=== PATIENT | female | born 1995 | race Caucasian/White ===

== ENCOUNTER 2025-01-13 08:13 | Outpatient (CLI) | payer OTHER, SELFPAY ==
--- OUTSIDE RECORDS SUMMARY | 2025-01-13 08:19 | XMS_ITS | Clinical Summary ---
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 Medications PNV #[id number] acid-dha 35 mg iron-5 mg iron-1 mg capsule Take by mouth daily Active ferrous sulfate 325 mg (65 mg of elemental iron) tabletIndicatio ns:Iron Deficiency Anemia Take 1 tablet (325 mg total) by mouth daily with breakfast 90 tablet 3 5 01/06/20 26 Active ondansetron (ZOFRAN) 4 mg tabletIndicatio ns:Nausea and Vomiting Take 1 tablet (4 mg total) by mouth every 6 (six) hours as needed for nausea or vomiting 15 tablet 4 01/06/20 25 Discontinu ed(Patient Reported) multivitamin with minerals tablet Take 1 tablet by mouth daily 01/06/20 25 Discontinu ed(Patient Reported) ferrous sulfate 325 mg (65 mg of elemental iron) tabletIndicatio ns:Iron Deficiency Anemia Take 1 tablet (325 mg total) by mouth daily with breakfast 90 tablet 3 4 01/06/20 25 Discontinu ed(Patient Reported) metoclopramide (REGLAN) 5 mg tablet Take 1 tablet (5 mg total) by mouth daily 5 01/06/20 25 Discontinu ed(Patient Reported) nystatin cream Apply topically 2 (two) times a day 30 g 1 01/06/20 25 Discontinu ed(Patient Reported) amoxicillin (AMOXIL) 500 mg tablet/capsuleI ndications:Stre p pharyngitis Take 1 tablet/capsul e (500 mg total) by mouth 2 (two) times a day for 10 days 20 tablet/capsu le 01/07/20 25 Active Problems Problem Noted Date Diagnosed Date 25 weeks gestation of 01/05/2025 Intertrigo 10/19/2024 Assessment & Plan (10/19/2024 12:53 PM CDT): Iron deficiency anemia 04/15/2024 Tinea versicolor 04/15/2024 Irritable bowel syndrome with constipation 04/15 Estimated Date of Delivery Comme nts Yes 04/14/2025 Resolved Problems Problem Noted Date Diagnosed Date Resolved Date Annual physical exam 10/19/2024 025 Assessment & Plan (10/19/2024 12:53 PM CDT): Screening for diabetes mellitus 04/15/2024 01/05/2025 Screening, anemia, deficiency, iron 04/15/2024 10/18/2024 Screening for lipid disorders 04/15/2024 01/05/2025 Screening for thyroid disorder 04/15/2024 01/05/2025 Immunization due 04/15/2024 01/05/2025 Encounter for medical examin ation to establish care 03/03/2024 10/18/2024 Encounters Date Type Department Care Team Description 01/05/2025 9:00 AM CDT Office Visit [facility] Primary Care at [address] [address] Aliyah Dee NP Acute upper respiratory infection (Primary Dx); Acute cough; Sore throat; Iron deficiency anemia, unspecified iron deficiency anemia type; Diarrhea of infectious origin; 25 weeks gestation of 01/04/2025 Nurse Triage [facility] at [address] [place] [address] Casandra Blevins NP 12/27/2024 10:00 AM CDT Office Visit [facility] [place] [phone] Celia Shane NP Sore throat (Primary Dx); Strep pharyngitis 12/12/2024 Telephone [facility] Care at [place] [phone] Casandra Blevins NP Forms Request 10/19/2024 9:30 AM CDT Office Visit [facility] Care at [address] [address] Casandra Blevins, SHANAE Annual physical exam (Primary Dx); Intertrigo from Last 3 Months Immunizations Immunization Administration Dates Next Due DTaP 06/10/2016 DTaP, Unspecified 02/23/2001, 8,06/06/1997,03/30,02/03/1997 HPV, Quadrivalent 01/08/2015 Hep A, Unspecified 01/03/2003 Hep B, Unspecified 12/13/1997,03/30/1997, 997 HiB 12/13/1997, 8,03/30/1997,02/03 Influenza, Quadrivalent, Spl it, Preservative Free, Intramuscular 03/30/2023 Influenza, Trivalent, Preser vative Free, Intramuscular 04/15/2024 Influenza, Unspecified 04/12/2024(Deferr ed: Patient Refused),03/02/2024(Deferred: Patient Refused),03/09/2023(Deferred: Patient Refused),03/09/2023(Deferred: Patient Refused) MMR 02/23/2001,12/13/1997 Meningococcal Conjugate (Menveo) 01/08/2015 Pfizer Sars-Cov-2 Bivalent V accination (12+ YRS) 04/21/2022,03/31/2022 Polio, Unspecified 02/23/2001, 8,03/30/1997,02/03 Td, adsorbed 03/17/2011 Tdap 06/10/2016,03/17/2011 Varicella 02/23/2001 Social History Tobacco Use Types Packs/Day Years Used Date Smoking Tobacco: Never Smokeless Tobacco: Never Tobacco Cessation:Counseling Given: Not Answered PHQ-2 Answer Date Recorded PHQ-2 Total Score (If total score is 3 or more points, staff should administer the PHQ-9) 0 04/15/2024 Personal Safety Answer Date Recorded Have you ever been in or are you currently in a harmful physical or emotional relationship or is someone making you feel afraid or unsafe? Denies 11/02/2022 Estimated Date of Delivery Comme nts Yes 04/14/2025 Sex and Gender Information Value Date Recorded Sex Assigned at Not on file Legal Sex Female 3:34 PM PIPE BENDER Gender Identity Female 04/17/2024 4:26 PM PIPE BENDER Sexual Orientation Not on file Obstetrics History Para Term AB IAB SAB Ectopic Multiple Livin g Live Births 1 Date Outcome GA Total Labor Labor/2nd/3rd Weight Sex Type Anes PTL Elizabeth A1 A5 Name Clin Current Last Filed Vital Signs Vital Sign Reading Time Taken Comments Blood Pressure 112/68 01/05/2025 8:36 AM CDT Pulse 121 01/05/2025 8:36 AM CDT Temperature 36.8 C (98.2 F) 01/05/2025 8:36 AM CDT Respiratory Rate 18 01/05/2025 8:36 AM CDT Oxygen Saturation 97% 01/05/2025 8:36 AM CDT Inhaled Oxygen Concentration - - Weight 101.6 kg (224 lb) 01/05/2025 8:36 AM CDT Height 170.2 cm (5' 7) 01/05/2025 8:36 AM CDT Body Mass Index 35.08 01/05/2025 8:36 AM CDT Plan of Treatment Health Maintenance Due Date Last Done Comments Cervical Cancer Screening 1996 HPV Vaccines (2 - 3-dose series) 02/05/2015 01/08/2015 Covid-19 Vaccine ( season) 2024 04/21/2022, 03/31/2022 Influenza Vaccine (#1) 2025 04/15/2024, 2022 Hepatitis C Screening 03/02/2025 Postpo supriya from 1996 (Patient declined, but will receive in the future) Depression Screening 04/15/2025 04/15/2024 Varicella Vaccines (2 of 2 - 2-dose childhood series) 10/18/2025 02/23/2001 Postponed fro m 05/18/2001 (Patient declined, but will receive in the future) Regular Well Visit/Exam 18-64 10/19/2025 10/19/2024 DTaP/Tdap/Td Vaccine (10 - Td or Tdap) 06/10/2026 06/10/2016, 06/10/2016, 03/17/2011, Additional history exists Hepatitis B Screening Completed 12/13/1997 , 03/30/1997, 02/03/1997 Pneumococcal vaccine <65 Aged Out No longer eligible based on patient's age to complete this topic Procedures Procedure Name Priority Date/Time Associated Diagnosis Comments POC INFLUENZA A/B, COVID-19 ANTIGEN Routine 01/05/2025 9:52 AM CDT Acute cough POCT RAPID STREP Routine 01/05/2025 9:02 AM CDT Acute cough Sore throat POC INFLUENZA A/B, COVID-19 ANTIGEN Routine 12/27/2024 10:15 AM CDT Sore throat POCT RAPID STREP Routine 12/27/2024 10:0 5 AM CDT Sore throat from Last 3 Months Results * POC Influenza A/B, COVID-19 antigen (01/05/2025 9:52 AM CDT) Influenza A Ag, POC Negative Negative PCP [facility] Influenza B Ag, POC Negative Negative PCP [facility] COVID-19 Ag POC Presumptive Negative Presumptive Negative, Invalid PCP FM CM Nasal 01/05/2025 9:52 AM CDT Aliyah Dee LITHODUPLICATOR OPERATOR POINT OF CARE TEST ORDE RABLES Final Result Performing Organization Address City/[facility]/ZIP Co de Phone Number PCP [address] [place] [address] * POCT rapid strep A (01/05/2025 9:02 AM CDT) Rapid Strep A, POC Negative Negative Swab 01/05/2025 9:02 AM CDT Aliyah Dee LITHODUPLICATOR OPERATOR POINT OF CARE TEST ORDE RABMIN Final Result * POC Influenza A/B, COVID-19 antigen (12/27/2024 10:15 AM CDT) [facility] Influenza A Ag, POC Negative Negative [facility] Influenza B Ag, POC Negative Negative [facility] COVID-19 Ag POC Presumptive Negative Presumptive Negative, Invalid [facility] Nasal 12/27/2024 10:1 5 AM CDT Celia Shane LITHODUPLICATOR OPERATOR POINT OF CARE TEST ORDERAB LES Final Result Performing Organization Address [facility] de Phone Number [facility] [address] [place] [address] * (ABNORMAL) POCT rapid strep A (12/27/2024 10:05 AM CDT) Rapid Strep A, POC Positive(A ) Negative Swab 12/27/2024 10:0 5 AM CDT Celia Shane LITHODUPLICATOR OPERATOR POINT OF CARE TEST ORDERAB LES Final Result from Last 3 Months Insurance [facility] [facility] [place] Care Teams Early Childhood Teacher Assistant Relationship Specialty Start Date End Date Casandra Blevins NP [id number] [facility] [address] [place] [address] PCP - General Family Medicine 04/15/24
--- OUTSIDE RECORDS SUMMARY | 2025-01-13 08:19 | XMS_ITS | Patient Health Record ---
Author Organization [facility] Address [address] [place] [address] Care Team Providers Care Messaging Architect Name Role Phone Toyin Avelar Unavailable [phone] Allergies No Known Allergies Reason For Referral Reason [place] - Ultrasound - TB D Please locate provider Diagnosis 1 (Z3A.37) Referred Provider Specialty Radiology General Notes Jasmine Monroy 06/2024 12:24:46 PM >1) Do you already have an appointment scheduled TBD, 2) If not scheduled what is your availability? , 3) What is the reason for visit? , 4) Do you have a preferred provider? , 5) What type of provider is this? Derm , 6) Do you already have a referral or order for this? ( If yes please obtain order or ordering provider's information ) , 7) Notes: Mbr sent in SCB, Sending for coordination, Please locate provider , * Facility/provider name:, * Provider Address: , Phone: , Fax: , * Is the member in [facility] (Y/N): If Y was AHC offered? , NPI Number:, Jasmine Monroy 09/02/2024 08:00:33 AM >Correction * *, Do you already have an appointment scheduled TBD, 2) If not scheduled what is your availability? , 3) What is the reason for visit? - US, 4) Do you have a preferred provider? , 5) What type of provider is this? Radiology , 6) Do you already have a referral or order for this? ( If yes please obtain order or ordering provider's information ) , 7) Notes: Mbr sent in SCB, Sending for coordination, Please locate provider , * Facility/provider name:, * Provider Address: , Phone: , Fax: , * Is the member in [facility] (Y/N): If Y was AHC offered? , NPI Number:;Assign To :DOMO Tapia; Clinical Notes Vj Cardona 12:31:53 PM >mm called in to inform she needs an ultrasound, Jasmine Monroy 09/02/2024 08:01:39 AM >Mbr called to check status. Advised still in process. Can take 24-72 business hours. Coordination will be calling soon for an update. Also corrected my notes above., Regina Platt 09/02/2024 08:39:14 AM >closing this portion out as spoke to MM she stated needing US due to , confirmed this would be her first one I advised she would first have her consult with OB than they will recommend US OB scan. open referral already for her OB. Referral Priority Routine Reason OS [place] - [place]BG[place] - TBD [facility] Diagnosis 1 (Z34.90) Referred Provider Specialty OB - Gynecol ogy General Notes Jasmine Monroy 08/2024 08:07:08 AM >1) Do you already have an appointment scheduled: TBD, 2) If not scheduled what is your availability? , 3) What is the reason for visit: , 4) Do you have a preferred provider? , 5) What type of provider is this? OBGYN , 6) Do you already have a referral or order for this? ( If yes please obtain order or ordering provider's information ) , 7) Notes: Mbr called would like to be seen at this office. Sending for coordination. , * Facility/provider name: [facility], * Provider Address: [address] [place] [address] [facility], [place] [address], , Fax: , * Is the member in [facility] (Y/N): If Y was AHC offered? , NPI Number: Unable to locate;Assign To :DOMO Cain Hawley; Clinical Notes Regina Platt 09/02/2024 08:40:24 AM >MM was scheuled for her first OB/ US visit but stated they cancelled due to not have any insurance information. I advised coordination team would follow up as MM needs R/S., DOMO Barlow Marleen 09/07/2024 02:22:28 PM >left vm working on referral, DOMO Barlow Marleen 09/07/2024 02:23:55 PM >[facility], Provider Address: [address] [place] [address] [address], [place] [address], , Office is closed, DOMO Barlow Marleen 09/08/2024 10:05:56 AM >spk to mm she stated she has found another ob and will not be going to [facility]- mm didnt have provider info she stated she will call back with info. Referral Priority Routine Referral Appointment Date 09/02/2024 Reason [place]- OBGYn Appt 2024 Diagnosis 1 (Z34.90) Referred Provider Specialty OB - Gynecol ogy General Notes DOMO Barlow Marleen 09/08 10:32:17 AM >1.Type of service:obgyn , 2.Ordering doctor, 3. Preferred Provider (Y/N): Dr Massey, 4. Facility/Provider Name: [facility] [place]-LICENSED CERTIFIED ORTHOTIST, Address: [address] [place] [address] [address], [place] [address], , 5. NPI Number: , 6. Provider Address/Phone/Fax, 7. Appointment Date/Time: 09/16/2024, 8. If preferred provider charges over the usual rates, member is willing to pay the amount over fair rate: (Y/N), If N, member is willing to go elsewhere., 9.Notes:;Assign To :DOMO Fried; Clinical Notes Fariha Ewing 06:21:01 AM >Office Name: [facility] - OB-LICENSED CERTIFIED ORTHOTIST, Provider:, Address: [address] [place] [address] [address], [place] [address] , , , NPI:, Spoke with: Maribell , PHCS: Y, Appointment Date/Time: 09/16/2024, Appointment Type: Office visit , Member Responsibility: $0 copay , Notes: Spoke to Maribell appointment was coordinated, referral reference form fax to office., Fariha Ewing 09/12/2024 06:21:28 AM >Left detail message for patient with appointment coordination and send email. Referral Priority Routine Social History Social History Additional Details Category Social Info Options Details Migrated Social History Drugs/Alcohol: (Do you drink alcohol?): No (Do you smoke marijuana?): Denies Section Notes: Quit vaping 2 years ago. Encounters Encounter Location Date Provider Diagnosis [facility] [address] [place] [address] 08/30/2024 [facility] [address] [place] [address] 08/30/2024 [facility] [address] [place] [address] 08/30/2024 [facility] [address] [place] [address] 08/30/2024 [facility] [address] [place] [address] 08/30/2024 [facility] [address] [place] [address] 08/31/2024 [facility] [address] [place] [address] 09/02/2024 [facility] [address] [place] [address] 09/16/2024 [facility] [address] [place] [address] 09/16/2024 [facility] [address] [place] [address] 10/12/2024 [facility] Plan Of Treatment No Information Insurance Providers Payer Name Payer Address Payer Phone Subscriber Number Group Number Insured Name Patient Relationship to Insured Coverage Start Date Coverage End Date [facility] [address] [place] [id number] Katelyn Loaiza Self - patient is the insured 5 6 Medical (General) History Medical History History ICD Code - will be 8 weeks on 09/01/24 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
--- OUTSIDE RECORDS SUMMARY | 2025-01-13 08:19 | XMS_ITS | Patient Health Record ---
Author Organization [facility] Address [address] [place] [address] Care Team Providers Care Ironing Machine Operator Name Role Phone SIS SEYMOUR Unavailable [phone] Allergies No Known Allergies Reason For Referral [...] Fax: , * Is the member in [facility] (Y/N): If Y was AHC offered? , [...] Fax: , * Is the member in [facility] (Y/N): If Y was AHC offered? , NPI Number: Clinical Notes Vj Cardona 12:31:53 PM >mm [...] OS [place] - [place] - TBD [facility] Diagnosis 1 (Z34.90) Referred Provider Specialty [...] for coordination. , * Facility/provider name: [facility], * Provider Address: [address] [place] [address] [address], [place] [address], , Fax: , * Is the member in [facility] (Y/N): If Y was AHC offered? , NPI Number: Unable to locate Clinical Notes Regina Platt 09/02/2024 08:40:24 AM >[facility] was scheuled for her first OB/ US visit but stated they cancelled due to not have any insurance information. I advised coordination team would follow up as MM needs R/S., Marleen Olsen 09/07/2024 02:22:28 PM >left vm working on referral, DOMO Barlow Edna 09/07/2024 02:23:55 PM >[facility], Provider Address: [address] [place] [address] [address], [place] [address], , Office is closed, DOMO Barlow Edna 09/08/2024 10:05:56 AM >spk to mm she stated she has found another ob and will not be going to [facility]- mm didnt have provider info she stated she will call back with info. Referral Priority Routine Referral Appointment Date 09/02/2024 Reason [place]- OBGYn Appt 2024 Diagnosis 1 (Z34.90) Referred Provider Specialty OB - Gynecol ogy General Notes DOMO Barlow Edna 09/08 10:32:17 AM >1.Type of service:obgyn , 2.Ordering doctor, 3. Preferred Provider (Y/N): Dr Massey, 4. Facility/Provider Name: [facility] OB-FELT STRIP FINISHER, Address: [address] [place] [address] [address], [place] [address], , 5. NPI Number: , 6. Provider Address/Phone/Fax, 7. Appointment Date/Time: 09/16/2024, 8. If preferred provider charges over the usual rates, member is willing to pay the amount over fair rate: (Y/N), If N, member is willing to go elsewhere., 9.Notes: Clinical Notes Fariha Ewing 06:21:01 AM >Office Name: [facility], Provider:, Address: [address] [place] [address] [address], [place] [address] , , , NPI:, Spoke with: Maribell PHCS: Y, Appointment Date/Time: 09/16/2024, Appointment Type: Office visit , Member Responsibility: $0 copay , Notes: Spoke to Maribell appointment was coordinated, referral reference form fax to office., Fariha Ewing 09/12/2024 06:21:28 AM >Left detail message for patient with appointment coordination and send email. Referral Priority Routine Social History Social History Additional Details Category Social Info Options Details Drugs/Alcohol: Do you smoke marijuana? De nies Do you drink alcohol? No Section Notes: Quit vaping 2 years ago. Encounters Encounter Location Date Provider Diagnosis [facility] [address]) [place] [address] 08/30/2024 [facility] [address] [place] [address] 08/30/2024 [facility] [address] [place] [address] 08/30/2024 [facility] [address] [place] [address] 08/30/2024 [facility] [address] [place] [address] 08/30/2024 [facility] [address] [place] [address] 08/31/2024 [facility] [address] [place] [address] 09/02/2024 [facility] [address] [place] [address] 09/16/2024 [facility] [address] [place] [address] 09/16/2024 [facility] [address] [place] [address] 10/12/2024 [facility] Plan Of Treatment No Information Insurance Providers Payer Name Payer Address Payer Phone Subscriber Number Group Number Insured Name Patient Relationship to Insured Coverage Start Date Coverage End Date 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
[2025-01-13 09:35] LABS: Hematocrit 36.3 % (37.0-47.0); Hemoglobin 12.1 g/dL (12.0-15.0); Mean Corpuscular HGB Conc 33.3 g/dl (32-36); Mean Corpuscular Hemoglobin 31.2 pg (26-34); Mean Corpuscular Volume 93.6 fl (80-100); Platelet Count Result 230 k/mm3 (150-375); Red Blood Count 3.88 M/mm3 (4.2-5.4); White Blood Count 12.2 K/mm3 (4.5-10.0)
[2025-01-13 09:58] LABS: Glucose 1 Hour PP 50gm Dose 152 mg/dL
[2025-01-13 10:40] LABS: HIV 1/2 Ab P24 Ag Result Negative (Negative)
[2025-01-13 10:56] LABS: Syphilis IgG/IgM Antibody Non-Reactive (Nonreactive)
== END 2025-01-13 08:14 | disposition home or self-care (01) ==
PROVIDERS: PCP Nurse Practitioner; Visit Provider Student in an Organized Health Care Education/Training Program
DX: Z34.90 Encounter for supervision of normal pregnancy, unspecified, unspecified trimester (principal); Z3A.00 Weeks of gestation of pregnancy not specified
CPT/HCPCS: 36415; 82947; 85027; 86593; 86703; G0432

== ENCOUNTER 2025-01-17 06:47 | Outpatient (CLI) | payer OTHER, SELFPAY ==
--- OUTSIDE RECORDS SUMMARY | 2025-01-17 06:50 | XMS_ITS | Patient Health Record ---
Author Organization [facility] Address [address] [place] [address] Care Team Providers Care Onion Topper Name Role Phone SIS SEYMOUR Unavailable [phone] Allergies No Known Allergies Reason For Referral [...] Fax: , * Is the member in [facility] (Y/N): If Y was AHC [...] Fax: , * Is the member in [facility] (Y/N): If Y was AHC [...] [place] - [place] - TBD [facility] Diagnosis 1 (Z34.90) Referred Provider [...] for coordination. , * Facility/provider name: [facility], * Provider Address: [address] [place] [address] [address], [place] [address], , Fax: , * Is the member in [facility] (Y/N): If Y was AHC [...] DOMO Barlow Edna 09/07/2024 02:23:55 PM >[facility], Provider Address: [address] [place] [address] Dr Jack TaylorB, [place] [address], , Office is closed, DOMO Balrow Edna 09/08/2024 10:05:56 AM >spk to mm she stated she has found another ob and will not be going to [place] [facility]- mm didnt have provider info she stated she will call back with info. Referral Priority Routine Referral Appointment Date 09/02/2024 Reason [place]- OBGYn Appt 2024 Diagnosis 1 (Z34.90) Referred Provider Specialty OB - Gynecol ogy General Notes DOMO Barlow Edna 09/08 10:32:17 AM >1.Type of service:obgyn , 2.Ordering doctor, 3. Preferred Provider (Y/N): Dr Massey, 4. Facility/Provider Name: [facility] OB-WAD COMPRESSOR OPERATOR ADJUSTER, Address: [address] [place] [address] [address], [place] [address], , 5. NPI Number: , 6. Provider Address/Phone/Fax, 7. Appointment Date/Time: 09/16/2024, 8. If preferred provider charges over the usual rates, member is willing to pay the amount over fair rate: (Y/N), If N, member is willing to go elsewhere., 9.Notes: Clinical Notes Fariha Ewing 06:21:01 AM >Office Name: [facility]-WAD COMPRESSOR OPERATOR ADJUSTER, Provider:, Address: [address] [place] [address] [address], [place] [address] , , , NPI:, Spoke with: Maribell [...] ago. Encounters Encounter Location Date Provider Diagnosis [facility] Yovanny [address] ([address]) [facility] [place] [address] [facility] [address] [place] [address] 08/30/2024 [facility] [address] [place] [address] 08/30/2024 [facility] [address] [place] [address] 08/30/2024 [facility] [address] [place] [address] 08/30/2024 [facility] [address] [place] [address] 08/31/2024 [facility] [address] [place] [address] 09/02/2024 [facility] [address] [place] [address] 09/16/2024 [facility] [address] [place] [address] 09/16/2024 [facility] [address] [place] [address] 10/12/2024 [facility] Plan Of Treatment No Information Insurance Providers Payer Name Payer Address Payer Phone Subscriber Number Group Number Insured Name Patient Relationship to Insured Coverage Start Date Coverage End Date [facility] [address] MINNIE Farias [id number] Katelyn Loaiza Self - patient is the insured 5 6 Medical (General) History Medical History History ICD Code - will be 8 weeks on 09/01/24 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
--- OUTSIDE RECORDS SUMMARY | 2025-01-17 06:50 | XMS_ITS | Patient Health Record ---
Author Organization [facility] Address [address] [place] [address] Care Team Providers Care Poll Clerk Name Role Phone Toyin Avelar Unavailable [phone] Allergies No Known Allergies Reason For Referral [...] Fax: , * Is the member in [facility] (Y/N): If Y was AHC offered? [...] Fax: , * Is the member in [facility] (Y/N): If Y was AHC offered? [...] [place] - [place] - [place] [facility] Diagnosis 1 (Z34.90) Referred Provider Specialty [...] for coordination. , * Facility/provider name: [facility], * Provider Address: [address] [place] [address] [facility], [place] [address], , Fax: , * Is the member in [facility] (Y/N): If Y was AHC offered? [...] referral, DOMO Barlow Marleen 09/07/2024 02:23:55 PM >[facility], Provider Address: [address] [place] [address] [address], [place] [address], , Office is closed, DOMO Barlow Marleen 09/08/2024 10:05:56 AM >spk to mm she stated she has found another ob and will not be going to [place] [facility]- mm didnt have provider info she stated she will call back with info. Referral Priority Routine Referral Appointment Date 09/02/2024 Reason [place]- OBGY[place] Appt 2024 Diagnosis 1 (Z34.90) Referred Provider Specialty OB - Gynecol ogy General Notes DOMO Barlow Marleen 09/08 10:32:17 AM >1.Type of service:obgyn , 2.Ordering doctor, 3. Preferred Provider (Y/N): Dr Massey, 4. Facility/Provider Name: [facility] OB-BODY BUILDER APPRENTICE, Address: [address] [place] [address] [address], [place] [address], , 5. NPI Number: , 6. Provider Address/Phone/Fax, 7. Appointment Date/Time: 09/16/2024, 8. If preferred provider charges over the usual rates, member is willing to pay the amount over fair rate: (Y/N), If N, member is willing to go elsewhere., 9.Notes:;Assign To :DOMO Fried; Clinical Notes Fariha Ewing 06:21:01 AM >Office Name: [facility] - OB-BODY BUILDER APPRENTICE, Provider:, Address: [address] [place] [address] [address], [place] [address] , , , NPI:, Spoke with: Maribell [...] ago. Encounters Encounter Location Date Provider Diagnosis [facility] [address] [place] [address] 08/30/2024 [facility] [address] [place] [address] 08/30/2024 [facility] [address] [place] [address] 08/30/2024 [facility] [address] [place] [address] 08/30/2024 [facility] [address] [place] [address] 08/30/2024 [facility] [address] [place] [address] 08/31/2024 [facility] [address] [place] [address] 09/02/2024 [facility] [address] [place] [address] 09/16/2024 [facility] [address] [place] [address] 09/16/2024 [facility] [address] [place] [address] 10/12/2024 [facility] Plan Of Treatment No Information Insurance Providers Payer Name Payer Address Payer Phone Subscriber Number Group Number Insured Name Patient Relationship to Insured Coverage Start Date Coverage End Date [facility] [address] MINNIE Farias [id number] Katelyn Loaiza Self - patient is the insured 5 6 Medical (General) History Medical History History ICD Code - will be 8 weeks on 09/01/24 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
[2025-01-17 07:45] LABS: Glucose Fasting Gestational 84 mg/dL (>/=95)
[2025-01-17 10:33] LABS: Glucose 1 Hour Gest 193 mg/dL (>/=180)
[2025-01-17 10:37] LABS: Glucose 2 Hour Gest 137 mg/dL (>/= 155)
[2025-01-17 12:14] LABS: Glucose 3 Hour Gest 71 mg/dL (>/=140)
== END 2025-01-17 06:48 | disposition home or self-care (01) ==
LOC: ANHLAB 06:48
PROVIDERS: PCP Nurse Practitioner; Visit Provider Student in an Organized Health Care Education/Training Program
DX: R73.09 Other abnormal glucose (principal)
CPT/HCPCS: 36415; 82951; 82952

== ENCOUNTER 2025-01-22 13:13 | Outpatient (CLI) | payer OTHER, SELFPAY ==
[2025-01-22] VITALS (11 sets, daily range): BP systolic 129–135; BP diastolic 72–78; PULSE 67–80; TEMP 37.4; O2SAT 98–100
[2025-01-22 13:57] LABS: Add Urine Microscopic? NO; Appearance Urine Clear (Clear); Glucose Urine UA Negative (Negative); Hematocrit 33.7 % (37.0-47.0); Hemoglobin 11.2 g/dL (12.0-15.0); Immature Granulocyte Percent A 0.7 % (0-0.5); Leukocyte Esterase Ur Negative LEU/UL (Negative); Lymphocytes Absolute Auto 1.65 K/mm3 (0.9-3.2); Mean Corpuscular HGB Conc 33.2 g/dl (32-36); Mean Corpuscular Hemoglobin 31.2 pg (26-34); Mean Corpuscular Volume 93.9 fl (80-100); Nitrate Urine Negative (Negative); Nucleated Red Blood Cells Absolute Auto 0.000 K/mm3 (0.0-0.012); Nucleated Red Blood Cells Perc 0.0 % (0.0-0.2); Platelet Count Result 202 k/mm3 (150-375); Red Blood Count 3.59 M/mm3 (4.2-5.4); Specific Grav Ur 1.005 (1.001-1.035); White Blood Count 10.9 K/mm3 (4.5-10.0)
[2025-01-22 14:06] LABS: Total Protein Urine Random 10 mg/dL; Ur Ttl Prot Creatinine Ratio 0.43 mg/mg (0-0.20)
[2025-01-22 14:18] LABS: Alanine Aminotransferase 20 U/L (6-35); Albumin Level 3.1 g/dL (3.5-5.1); Alkaline Phosphatase 69 U/L (38-126); Anion Gap 4 mmol/L (4-12); Aspartate Amino Transferase 25 U/L (14-36); Bilirubin,Total < 0.1 mg/dL (0.2-1.3); Blood Urea Nitrogen 10 mg/dL (7-17); Calcium 9.0 mg/dL (8.4-10.2); Carbon Dioxide 21 mmol/L (22-30); Chloride 109 mmol/L (98-107); Estimated Glomerular Filt Rate > 60; Glucose 76 mg/dL (65-110); Potassium 4.1 mmol/L (3.4-5.0); Sodium 134 mmol/L (137-145); Total Protein 6.0 g/dL (6.3-8.2); Uric Acid 5.4 mg/dL (2.5-7.5)
== END 2025-01-22 14:45 | disposition home or self-care (01) ==
LOC: ANHOBOP 13:23 → ANHLDR 13:31
PROVIDERS: PCP Nurse Practitioner; Visit Provider Obstetrics & Gynecology
DX: O26.899 Other specified pregnancy related conditions, unspecified trimester (principal); R51.9 Headache, unspecified; H53.8 Other visual disturbances; Z3A.00 Weeks of gestation of pregnancy not specified
CPT/HCPCS: 36415; 59025; 80053; 81003; 82570; 84156; 84550; 85025; 99199

== ENCOUNTER 2025-01-25 09:30 | Outpatient (NON) | payer OTHER, SELFPAY ==
--- OUTSIDE RECORDS SUMMARY | 2025-01-25 09:43 | XMS_ITS | Patient Health Record ---
Author Organization [facility] Address [address] [place] [address] Care Team Providers Care Cotton Presser Name Role Phone Toyin Avelar Unavailable [phone] Allergies No Known Allergies Reason For Referral [...] Fax: , * Is the member in [facility] (Y/N): If Y was AHC [...] Fax: , * Is the member in [facility] (Y/N): If Y was AHC [...] [place] - [place] - [place] [facility] Diagnosis 1 (Z34.90) Referred Provider Specialty [...] for coordination. , * Facility/provider name: [facility], * Provider Address: [address] [place] [address] [facility], [place] [address], , Fax: , * Is the member in [facility] (Y/N): If Y was AHC offered? , NPI Number: Unable to locate;Assign To :DOMO Hawley; Clinical Notes Regina Platt 09/02/2024 08:40:24 AM >MM was scheuled for her first OB/ US visit but stated they cancelled due to not have any insurance information. I advised coordination team would follow up as MM needs R/S., Marleen Olsen 09/07/2024 02:22:28 PM >left vm working on referral, Marleen Olsen 09/07/2024 02:23:55 PM >[facility], Provider Address: [address] [place] [address] [address], [place] [address], , Office is closed, Marleen Olsen 09/08/2024 10:05:56 AM >spk to mm she stated she has found another ob and will not be going to [facility]- mm didnt have provider info she stated she will call back with info. Referral Priority Routine Referral Appointment Date 09/02/2024 Reason [place]- OBGYn Appt 2024 Diagnosis 1 (Z34.90) Referred Provider Specialty OB - Gynecol ogy General Notes DOMO Barlow Marleen 09/08 10:32:17 AM >1.Type of service:obgyn , 2.Ordering doctor, 3. Preferred Provider (Y/N): Dr Massey, 4. Facility/Provider Name: [facility] OB-UTILITY TECH, Address: [address] [place] [address] [address], [place] [address], , 5. NPI Number: , 6. Provider Address/Phone/Fax, 7. Appointment Date/Time: 09/16/2024, 8. If preferred provider charges over the usual rates, member is willing to pay the amount over fair rate: (Y/N), If N, member is willing to go elsewhere., 9.Notes:;Assign To :DOMO Fried; Clinical Notes Fariha Ewing 06:21:01 AM >Office Name: [facility] - OB-UTILITY TECH, Provider:, Address: [address] [place] [address] [address], [place] [address] , , , NPI:, Spoke with: Maribell [...] ago. Encounters Encounter Location Date Provider Diagnosis [facility] [address] [place] [address] 08/30/2024 [facility] [address] [place] [address] 08/30/2024 [facility] [address] [place] [address] 08/30/2024 [facility] [address] [place] [address] 08/30/2024 [facility] [address] [place] [address] 08/30/2024 [facility] [address] [place] [address] 08/31/2024 [facility] [address] [place] [address] 09/02/2024 [facility] [address] [place] [address] 09/16/2024 [facility] [address] [place] [address] 09/16/2024 [facility] [address] [place] [address] 10/12/2024 [facility] Plan Of Treatment No Information Insurance Providers Payer Name Payer Address Payer Phone Subscriber Number Group Number Insured Name Patient Relationship to Insured Coverage Start Date Coverage End Date 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
--- OUTSIDE RECORDS SUMMARY | 2025-01-25 09:43 | XMS_ITS | Clinical Summary ---
Author Organization [facility] Address [address] [place] [address] Care Team Providers Care Dianetic Counselor Name Role Phone Casandra Blevins NP Primary Care Provider [phone] Allergies Active Allergy Reactions Criticality Noted Date Comments Coconut Anaphylaxis High 01/11/2022 Medications PNV #[id number] acid-dha 35 mg iron-5 mg iron-1 mg [...] Description 01/05/2025 9:00 AM CDT Office Visit [facility] Primary Care at [address] [address] Aliyah Dee NP Acute upper respiratory infection (Primary Dx); Acute cough; Sore throat; Iron deficiency anemia, unspecified iron deficiency anemia type; Diarrhea of infectious origin; 25 weeks gestation of 01/04/2025 Nurse Triage [facility] Primary Care at [address] [place] [address] Casandra Blevins NP 12/27/2024 10:00 AM CDT Office Visit [facility] [place] [phone] Celia Shane NP Sore throat (Primary Dx); Strep pharyngitis 12/12/2024 Telephone [facility] Primary Care at [address] [phone] Casandra Blevins NP Forms Request from Last 3 Months Immunizations Immunization Administration [...] on file Legal Sex Female 3:34 PM STAFF DEVELOPMENT MANAGER Gender Identity Female 04/17/2024 4:26 PM STAFF DEVELOPMENT MANAGER Sexual Orientation Not on file Obstetrics History [...] Influenza A Ag, POC Negative Negative PCP CM Influenza B Ag, POC Negative Negative PCP CM COVID-19 Ag POC Presumptive Negative Presumptive Negative, Invalid PCP CM Nasal 01/05/2025 9:52 AM CDT Aliyah Dee FINANCIAL ADMINISTRATION OFFICER POINT OF CARE TEST HEATHER FIERRO Final Result PCP CM [address] [place] [address], [facility] * POCT rapid strep A (01/05/2025 9:02 AM CDT) Rapid Strep A, POC Negative Negative Swab 01/05/2025 9:02 AM CDT Aliyah Dee FINANCIAL ADMINISTRATION OFFICER POINT OF CARE TEST HEATHER FIERRO Final Result * POC Influenza A/B, COVID-19 antigen (12/27/2024 10:15 AM CDT) Pathologist [facility] Influenza A Ag, POC Negative Negative [facility] Influenza B Ag, POC Negative Negative [facility] COVID-19 Ag POC Presumptive Negative Presumptive Negative, Invalid [facility] Nasal 12/27/2024 10:1 5 AM CDT Result [facility] Celia Shane FINANCIAL ADMINISTRATION OFFICER POINT OF CARE TEST ORDERAB LES Final Result Performing Organization Address City/State/[facility] Co de Phone Number [address] [address] * (ABNORMAL) POCT rapid strep A (12/27/2024 10:05 AM CDT) Pathologist [facility] Rapid Strep A, POC Positive(A ) Negative Swab 12/27/2024 10:0 5 AM CDT Result [facility] Celia Shane FINANCIAL ADMINISTRATION OFFICER POINT OF CARE TEST ORDERAB LES Final Result from Last 3 Months Insurance [facility] Care Teams Dianetic Counselor Relationship Specialty Start Date End Date Casandra Blevins NP [address] [facility] [address] [place] [address] PCP - General Family Medicine 04/15/24
--- OUTSIDE RECORDS SUMMARY | 2025-01-25 09:43 | XMS_ITS | Patient Health Record ---
Author Organization [facility] Address [address] [place] [address] Care Team Providers Care Chief Marketing Officer Name Role Phone SIS SEYMOUR Unavailable [phone] Allergies No Known Allergies Reason For Referral [...] Fax: , * Is the member in [facility] (Y/N): If Y was AHC offered? , [...] Fax: , * Is the member in [facility] (Y/N): If Y was AHC offered? , [...] OS [place] - [place] - TBD [facility] Diagnosis 1 (Z34.90) Referred Provider Specialty [...] for coordination. , * Facility/provider name: [facility], * Provider Address: [address] [place] [address] [address], [place] [address], , Fax: , * Is the member in [facility] (Y/N): If Y was AHC offered? , NPI Number: Unable to locate Clinical Notes Regina Pltat 09/02/2024 08:40:24 AM >CADEN was scheuled for her first OB/ US visit but stated they cancelled due to not have any insurance information. I advised coordination team would follow up as MM needs R/S., Marleen Olsen 09/07/2024 02:22:28 PM >left vm working on referral, DOMO Barlow Edna 09/07/2024 02:23:55 PM >[facility], Provider Address: [address] [place] [address] Dr Jack TaylorB, [place] [address], , Office is closed, DOMO Barlow Edna 09/08/2024 10:05:56 AM >spk to mm she stated she has found another ob and will not be going to [place] [facility]- mm didnt have provider info she stated she will call back with info. Referral Priority Routine Referral Appointment Date 09/02/2024 Reason [place]- OBGYn Appt 2024 Diagnosis 1 (Z34.90) Referred Provider Specialty OB - Gynecol ogy General Notes DOMO Barlow Edna 09/08 10:32:17 AM >1.Type of service:obgyn , 2.Ordering doctor, 3. Preferred Provider (Y/N): Dr Massey, 4. Facility/Provider Name: [facility] OB-AUTOMOTIVE SERVICE ASSISTANT, Address: [address] [place] [address] [address], [place] [address], , 5. NPI Number: , 6. Provider Address/Phone/Fax, 7. Appointment Date/Time: 09/16/2024, 8. If preferred provider charges over the usual rates, member is willing to pay the amount over fair rate: (Y/N), If N, member is willing to go elsewhere., 9.Notes: Clinical Notes Fariha Ewing 06:21:01 AM >Office Name: [facility] OB-AUTOMOTIVE SERVICE ASSISTANT, Provider:, Address: [address] [place] [address] [address], [place] [address] , , , NPI:, Spoke with: Maribell [...] ago. Encounters Encounter Location Date Provider Diagnosis [facility] Yov[address] ([address]) [facility] [place] [address] 08/30[facility]2024 [facility] [address] [place] [address] 08/30/2024 [facility] [address] [place] [address] 08/30/2024 [facility] [address] [place] [address] 08/30/2024 [facility] [address] [place] [address] 08/30/2024 [facility] [address] [place] [address] 08/31/2024 [facility] [address] [place] [address] 09/02/2024 [facility] [address] [place] [address] 09/16/2024 [facility] [address] [place] [address] 09/16/2024 [facility] [address] [place] [address] 10/12/2024 [facility] Plan Of Treatment No Information Insurance Providers Payer Name Payer Address Payer Phone Subscriber Number Group Number Insured Name Patient Relationship to Insured Coverage Start Date Coverage End Date [facility] [address] [place] Farias [id number] Katelyn Loaiza Self - patient is the insured 5 6 Medical (General) History Medical History History ICD Code - will be 8 weeks on 09/01/24 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
[2025-01-25 09:58] LABS: Specific Gravity Ur 1.010; Total Volume 24 Hour Urine 2600 ml
[2025-01-25 10:08] LABS: Total Protein Urine 24 Hr 182 mg/24hr (28-141); Total Protein Urine Random 7 mg/dL
== END 2025-01-25 09:31 | disposition home or self-care (01) ==
LOC: ANHLAB 09:30
PROVIDERS: PCP Nurse Practitioner; Visit Provider Obstetrics & Gynecology
DX: Z34.90 Encounter for supervision of normal pregnancy, unspecified, unspecified trimester (principal); Z3A.00 Weeks of gestation of pregnancy not specified
CPT/HCPCS: 81050; 84156

== ENCOUNTER 2025-02-03 00:27 | Observation (INO) | payer OTHER, SELFPAY ==
[2025-02-03] VITALS (30 sets, daily range): BP systolic 124–150; BP diastolic 73–99; PULSE 56–83; O2SAT 99–100; BMI 36.8
--- NOTE | 2025-02-03 00:47 | OBADM ---
This patient, Katelyn Loaiza, admitted to the OB room OB Post 117 for observation. Patient/family oriented to hospital policies and general routines including ID bracelet, bed and alarms, visiting hours, pain management, procedures, bathroom and other care routines, personal items, smoking policy, room service/diet, and visiting hours. Patient/Family are encouraged to report perceived risks to care and to ask questions if they do not understand what they are told or what they should do.
[2025-02-03 01:08] LABS: Hematocrit 34.2 % (37.0-47.0); Hemoglobin 11.7 g/dL (12.0-15.0); Immature Granulocyte Percent A 0.9 % (0-0.5); Lymphocytes Absolute Auto 2.03 K/mm3 (0.9-3.2); Mean Corpuscular HGB Conc 34.2 g/dl (32-36); Mean Corpuscular Hemoglobin 31.8 pg (26-34); Mean Corpuscular Volume 92.9 fl (80-100); Nucleated Red Blood Cells Absolute Auto 0.000 K/mm3 (0.0-0.012); Nucleated Red Blood Cells Perc 0.0 % (0.0-0.2); Platelet Count Result 184 k/mm3 (150-375); Red Blood Count 3.68 M/mm3 (4.2-5.4); White Blood Count 11.0 K/mm3 (4.5-10.0)
[2025-02-03 01:14] LABS: Add Urine Microscopic? YES; Appearance Urine Cloudy (Clear); Glucose Urine UA Negative (Negative); Leukocyte Esterase Ur Negative LEU/UL (Negative); Nitrate Urine Negative (Negative); Non Pathogenic Casts 0-2; Specific Grav Ur 1.020 (1.001-1.035)
[2025-02-03 01:15] LABS: Total Protein Urine Random 23 mg/dL; Ur Ttl Prot Creatinine Ratio 0.16 mg/mg (0-0.20)
[2025-02-03 01:21] LABS: Alanine Aminotransferase 33 U/L (6-35); Albumin Level 2.9 g/dL (3.5-5.1); Alkaline Phosphatase 84 U/L (38-126); Anion Gap 4 mmol/L (4-12); Aspartate Amino Transferase 50 U/L (14-36); Bilirubin,Total < 0.1 mg/dL (0.2-1.3); Blood Urea Nitrogen 10 mg/dL (7-17); Calcium 8.5 mg/dL (8.4-10.2); Carbon Dioxide 21 mmol/L (22-30); Chloride 107 mmol/L (98-107); Estimated CRCL calculation 154 ml/min; Estimated Glomerular Filt Rate > 60; Glucose 91 mg/dL (65-110); Potassium 4.1 mmol/L (3.4-5.0); Sodium 132 mmol/L (137-145); Total Protein 5.9 g/dL (6.3-8.2); Uric Acid 5.9 mg/dL (2.5-7.5)
[2025-02-03] MEDS: ONDANSETRON HCL ODT 4 MG TABLET (01:44)
[2025-02-03] MEDS: ACETAMINOPHEN/BUTALBITAL/CAFFEINE 325-50-40 MG TABLET (FIORICET) 1 TAB PO (02:31)
--- NOTE | 2025-02-15 16:09 | PM.OBTRLD ---
OB - Triage/Final Diagnosis Visit Information Comments/Additional reasons for admission: I have assessed the risk for this patient, Katelyn Loaiza, and determined that she would benefit from observation care. Evaluation Laboratory results: Laboratory Tests 02/03/25 00:56 WBC 11.0 H RBC 3.68 L Hgb 11.7 L Hct 34.2 L MCV 92.9 MCH 31.8 MCHC 34.2 RDW 13.8 Plt Count 184 MPV 10.1 Immature Gran % (Auto) 0.9 H Neut % (Auto) 71.8 Lymph % (Auto) 18.5 Gosper % (Auto) 6.6 Eos % (Auto) 1.8 Baso % (Auto) 0.4 Lymph # (Auto) 2.03 [place]per # (Auto) 0.7 H Eos # (Auto) 0.2 Baso # (Auto) 0.0 Abs Immat Gran (auto) 0.10 H Absolute Neuts (auto) 7.9 H Absolute Nucleated RBC 0.000 Nucleated RBC % 0.0 Sodium 132 L Potassium 4.1 Chloride 107 Carbon Dioxide 21 L Anion Gap 4 BUN 10 Creatinine 0.60 L Estim Creat Clear Calc 154 Estimated GFR > 60 Glucose 91 Uric Acid 5.9 Calcium 8.5 Total Bilirubin < 0.1 L AST 50 H ALT 33 Alkaline Phosphatase 84 Total Protein 5.9 L Albumin 2.9 L Urine Color Yellow Urine Appearance Cloudy H Urine pH 6.5 Ur Specific [place] 1.020 Urine Protein 1+ H Urine Glucose (UA) Negative Urine Ketones Negative Ur Blood (Man) Negative Urine Nitrate Negative Urine Bilirubin Negative Urine Urobilinogen 0.2 Leukocyte Esterase Rfl Negative Urine RBC 0-2 Urine WBC 0-5 Ur Squamous Epith Cells Few Urine Bacteria Rare Urine Casts 0-2 U Random Total Protein 23 Urine Creatinine 140.0 Protein/Creat Ratio 2 0.16 Final Diagnosis (1) Nausea and vomiting during : Code(s): O21.9 - Vomiting of , unspecified Status: Acute
== END 2025-02-03 03:51 | disposition home or self-care (01) ==
PROVIDERS: Admitting Provider Obstetrics & Gynecology; Visit Provider Obstetrics & Gynecology
DX: O21.2 Late vomiting of pregnancy (principal); Z3A.30 30 weeks gestation of pregnancy
CPT/HCPCS: 36415; 80053; 81001; 82570; 84156; 84550; 85025; A9270; G0378; G0379

== ENCOUNTER 2025-02-08 16:40 | Observation (INO) | payer OTHER, SELFPAY ==
[2025-02-08] VITALS (24 sets, daily range): BP systolic 140–170; BP diastolic 88–105; PULSE 33–98; RESP 18; TEMP 37.1; O2SAT 83–100; BMI 36.8
--- NOTE | ~2025-02-08 | US_ITS ---
ULTRASOUND ABDOMEN LIMITED (RIGHT UPPER QUADRANT) Clinical History: abdominal pain radiating to shoulder Comparison: None Technique: Right upper quadrant sonography Findings: Liver: Normal size. Normal echotexture. No intrahepatic biliary ductal dilatation. Normal hepatopedal flow main portal vein. Common Duct: Normal caliber. 5 mm. Gallbladder: No stones. No wall thickening. No pericholecystic fluid. Technologist reports sonographic Bro sign. Pancreas: Unremarkable. Right kidney: Unremarkable. Retrohepatic IVC: Unremarkable. IMPRESSION: 1. No gallstones or ultrasound evidence of cholecystitis. 2. Technologist reports positive sonographic Bro's sign, which is of uncertain significance given lack of gallstones. 3. If symptoms persist or further characterization desired, consider CT with contrast. Reviewed, dictated and finalized at location R. IMPRESSION: 1. No gallstones or ultrasound evidence of cholecystitis. 2. Technologist reports positive sonographic Bro's sign, which is of uncert ain significance given lack of gallstones. 3. If symptoms persist or further characterization desired, consider CT with c ontrast.
--- NOTE | ~2025-02-08 | US_ITS ---
US OB limited 02/08/2025 20:35 Indication: Evaluate placenta Procedure: Limited obstetrical ultrasound Comparison: Ultrasound dated 02/08/2025 Findings: There is a single living intrauterine in breech presentation. heart rate 147 BPM. Placenta is fundal without evidence for previa. No abnormalities of the placenta identified. Amniotic fluid is subjectively normal. Impression: 1: The placenta is grossly normal, without suggestion of placenta abruption. However, ultrasound is not diagnostic of abruption since acute hemorrhage can be isoechoic to be placenta. Recommend clinical correlation. Reviewed, dictated and finalized at location O. Impression: 1: The placenta is grossly normal, without suggestion of placenta abruption. H owever, ultrasound is not diagnostic of abruption since acute hemorrhage can be isoechoic to be placenta. Recommend clinical correlation.
--- OUTSIDE RECORDS SUMMARY | 2025-02-08 17:47 | XMS_ITS | Patient Health Record ---
Author Organization [facility] Address [address] [place] [address] Care Team Providers Care Maintenance Repairman Name Role Phone SIS SEYMOUR Unavailable [phone] Allergies No Known Allergies Reason For Referral [...] Fax: , * Is the member in [facility] (Y/N): If Y was [facility]HC [...] Fax: , * Is the member in [facility] (Y/N): If Y was [facility] [...] [place] - [place] - TBD [facility] Diagnosis 1 (Z34.90) Referred Provider Specialty [...] for coordination. , * Facility/provider name: [facility], * Provider Address: [address] [place] [address] [address], [place] [address], , Fax: , * Is the member in [facility] (Y/N): If Y was AHC [...] DOMO Barlow Edna 09/07/2024 02:23:55 PM >[facility], Provider Address: [address] [place] [address] Dr Jack TaylorB, [place] [address], , Office is closed, DOMO Barlow Edna 09/08/2024 10:05:56 AM >spk to mm she stated she has found another ob and will not be going to [facility]- mm didnt have provider info she stated she will call back with info. Referral Priority Routine Referral Appointment Date 09/02/2024 Reason [place]- OBGYn Appt 2024 Diagnosis 1 (Z34.90) Referred Provider Specialty OB - Gynecol ogy General Notes DOMO Barlow Edna 09/08 10:32:17 AM >1.Type of service:obgyn , 2.Ordering doctor, 3. Preferred Provider (Y/N): Dr Massey, 4. Facility/Provider Name: [facility] ([facility], Address: [address] [place] [address] [address], [place] [address], , 5. NPI Number: , 6. Provider Address/Phone/Fax, 7. Appointment Date/Time: 09/16/2024, 8. If preferred provider charges over the usual rates, member is willing to pay the amount over fair rate: (Y/N), If N, member is willing to go elsewhere., 9.Notes: Clinical Notes Fariha Ewing 06:21:01 AM >Office Name: [facility] ([facility], Provider:, Address: [address] [place] [address] [address], [place] [address] , , , NPI:, Spoke with: Maribell [...] ago. Encounters Encounter Location Date [facility] [address] [place] [address] [facility] [address] [place] [address] 09/16/2024 [facility] [address] [place] [address] 09/16/2024 [facility] [address] [place] [address] 09/02/2024 [facility] [address] [place] [address] 08/31/2024 [facility] [address] [place] [address] 08/30[facility]2024 [facility] [place] [address] [place] [address] 08/30/2024 [facility] [address] [place] [address] 08/30/2024 [facility] [address] [place] [address] 08/30/2024 [facility] [address] ([facility] [place] [address] 08/30/2024 [facility] Plan Of Treatment No Information Insurance Providers Payer Name Payer Address Payer Phone Subscriber Number Group Number Insured Name Patient Relationship to Insured Coverage Start Date Coverage End Date [facility] [address] MINNIE Farias [id number] Katelyn Loaiza Self - patient is the insured 5 6 Medical (General) History Medical History History ICD Code - will be 8 weeks on 09/01/24 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
--- OUTSIDE RECORDS SUMMARY | 2025-02-08 17:47 | XMS_ITS | Patient Health Record ---
Author Organization [facility] Address [address] [place] [address] Care Team Providers Care Civil Defense Director Name Role Phone Toyin Avelar Unavailable [phone] Allergies No Known Allergies Reason For Referral [...] Fax: , * Is the member in [facility] (Y/N): If Y was AHC [...] Fax: , * Is the member in [facility] (Y/N): If Y was [facility] [...] [place] - [place] - TBD [facility] Diagnosis 1 (Z34.90) Referred Provider Specialty [...] for coordination. , * Facility/provider name: [facility], * Provider Address: [address] [place] [address] [facility] [place] [address], , Fax: , * Is the member in [facility] (Y/N): If Y was AHC [...] on referral, Marleen Olsen 09/07/2024 02:23:55 PM >[facility], Provider Address: [address] [place] [address] [address], [place] [address], , Office is closed, Marleen Olsen 09/08/2024 10:05:56 AM >spk to mm she stated she has found another ob and will not be going to [facility]- mm didnt have provider info she stated she will call back with info. Referral Priority Routine Referral Appointment Date 09/02/2024 Reason [place]- OBGYn Appt 2024 Diagnosis 1 (Z34.90) Referred Provider Specialty OB - Gynecol ogy General Notes DOMO Barlow Marleen 09/08 10:32:17 AM >1.Type of service:obgyn , 2.Ordering doctor, 3. Preferred Provider (Y/N): Dr Massey, 4. Facility/Provider Name: [facility], Address: [address] [place] [address] [address], [place] [address], , 5. NPI Number: , 6. Provider Address/Phone/Fax, 7. Appointment Date/Time: 09/16/2024, 8. If preferred provider charges over the usual rates, member is willing to pay the amount over fair rate: (Y/N), If N, member is willing to go elsewhere., 9.Notes:;Assign To :DOMO Fried; Clinical Notes Fariha Ewing 06:21:01 AM >Office Name: [facility] [place] [facility], Provider:, Address: [address] [place] [address] [address], [place] [address] , , , NPI:, Spoke with: Maribell [...] ago. Encounters Encounter Location Date Provider Diagnosis [facility] [address] [place] [address] 08/30/2024 [facility] [address] [place] [address] 08/30/2024 [facility] [address] [place] [address] 08/30/2024 [facility] [address] [place] [address] 08/30/2024 [facility] [address] [place] [address] 08/30/2024 [facility] [address] [place] [address] 08/31/2024 [facility] [address] [place] [address] 09/02/2024 [facility] [address] [place] [address] 09/16/2024 [facility] [address] [place] [address] 09/16/2024 [facility] [address] [place] [address] 10/12/2024 [facility] Plan Of Treatment No Information Insurance Providers Payer Name Payer Address Payer Phone Subscriber Number Group Number Insured Name Patient Relationship to Insured Coverage Start Date Coverage End Date 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
[2025-02-08 18:28] LABS: Hematocrit 37.8 % (37.0-47.0); Hemoglobin 12.7 g/dL (12.0-15.0); Immature Granulocyte Percent A 1.0 % (0-0.5); Immature Platelet Fraction Pct 5.1 % (0.9-11.2); Lymphocytes Absolute Auto 1.34 K/mm3 (0.9-3.2); Mean Corpuscular HGB Conc 33.6 g/dl (32-36); Mean Corpuscular Hemoglobin 31.4 pg (26-34); Mean Corpuscular Volume 93.3 fl (80-100); Nucleated Red Blood Cells Absolute Auto 0.000 K/mm3 (0.0-0.012); Nucleated Red Blood Cells Perc 0.0 % (0.0-0.2); Platelet Count Result 105 k/mm3 (150-375); Red Blood Count 4.05 M/mm3 (4.2-5.4); White Blood Count 12.8 K/mm3 (4.5-10.0)
[2025-02-08] MEDS: CYCLOBENZAPRINE HCL 5 MG TABLET PO (18:35)
[2025-02-08] MEDS: PROMETHAZINE HCL 25 MG/ML AMPUL 12.5 MG IV PUSH (18:36)
[2025-02-08] MEDS: LACTATED RINGERS 1,000 ML 125 ML (18:37)
--- NOTE | 2025-02-08 19:45 | ECG_ITS ---
Test Date: 2025-02-08 19:57:41 Measurements Intervals Swan Rate: 75 P: 49 MS: 140 QRS: 53 QRSD: 83 T: 33 QT: 378 QTc: 422 Interpretive Statements SINUS RHYTHM No previous ECG available for comparison Electronically Signed On 02-09-2025 11:01:04 CDT by Raman Sherman M.D.
[2025-02-08] MEDS: MAGNESIUM SULF 6 GM/WATER150ML 6 GM/150 ML BAG IVPB (19:55)
[2025-02-08 20:06] LABS: Add Urine Microscopic? YES; Appearance Urine Clear (Clear); Glucose Urine UA Negative (Negative); Leukocyte Esterase Ur Negative LEU/UL (Negative); Nitrate Urine Negative (Negative); Specific Grav Ur 1.015 (1.001-1.035)
[2025-02-08 20:15] LABS: Total Protein Urine Random > 600 mg/dL; Ur Ttl Prot Creatinine Ratio > 5.75 mg/mg (0-0.20)
--- NOTE | 2025-02-08 20:19 | P.HP_ITS ---
H&P: HPI History of Present Illness Date/Time: 02/08/25 20:19 Chief Complaint: Headache Narrative: 29 y/o g1 at 30 5/7 presented to l and D with c/o headache, midepigastric and back and pelvic pain. Her OB gave Flexiril for pain initially. Initially blood pressures normal. Her blood pressures started to increase 140-150/90. PIH labs drawn. Plt 105. Pr/cr 5, lft pending. Blood pressures did start to increase to severe range. She received Labetolol IV x 2, did decrease blood pressures. She has a severe headache no relief for several days. Denies scotomata. She denied bleeding. She had straight cath to obtain urine due to incontinence. SROM check neg x 2. Nurse reported spotting at that time. She did start to have palpable contractions when blood pressues increased. Cervical exam ft/th. Bedside ultrasound showed fundal placenta, no obvious abruption. record reviewed, no elevated blood at office, she reported increase blood pressure readings at home. Review of Systems Review of Systems: All systems reviewed & are unremarkable except as noted in HPI and below Constitutional: Constitutional: Reports no additional constitutional complaints and Denies headache(s) Eyes: Eyes: Denies spots in vision ENT: Reports system reviewed and no additional complaints, except as documented and Denies headache(s) Cardiovascular: Cardiovascular: Denies chest pain and Denies dyspnea Respiratory: Respiratory: Denies dyspnea Gastrointestinal: Gastrointestinal: Reports no additional gastrointestinal complaints Genitourinary: Genitourinary: Reports amenorrhea Musculoskeletal: Musculoskeletal: Reports no additional musculoskeletal complaints Integumentary/Breasts: Skin/Breast: Denies breast mass and Denies rash Neurologic: Denies headache(s) Psychiatric: Psychiatric: Reports no additional psychiatric complaints [facility] Past Medical History Medical History IBS (irritable bowel syndrome) Family History Family History Grandparent Cerebrovascular accident Heart disease Hypertension Social History Social History Smoking status: Former smoker Tobacco type: e-cigarettes/vaping Alcohol intake: current Alcohol use details: rare Substance use: never Substance use type: does not use Do You Feel Safe in your Home?: Yes Lack of Transportation: YES Lack of Food: Never True Current Housing: I Have Housing Concerned About Future Housing: No Difficulty Paying Gas/Electric Bills: No Difficulty Paying for Meds: No Currently Unemployed: No Education: Trade/Vocational Certificate Difficulty w/ Childcare or Family Care: No Living arrangements: with family Occupation/Education: occupation Gender identity (if verbalized by the patient): Female Sexual Orientation (if Verbalized by the Patient): Straight or Heterosexual Meds Home Medications and Allergies Home Medications ?Medication ?Instructions ?Recorded ?Confirmed ?Type vits no.126-ferrous fum tablet PO DAILY 09/1501/26/25 History 28 mg iron-folic acid 800 mcg tablet (Classic ) ferrous sulfate 325 mg (65 mg 325 mg PO DAILY 09/16/24 02/03/25 History iron) tablet,delayed release metoclopramide HCl 5 mg tablet 5 mg PO DAILY #30 tabs 10/10/24 02/03/25 Rx (Reglan) triamcinolone acetonide 0.025 % 1 applic topical BID # 60 mL 01/26/25 02/03/25 Rx lotion lidocaine 1.8 % topical patch 1 patch topical DAILY #3 0 ea 02/07/25 Rx ondansetron HCl 4 mg tablet 4 mg PO Q6H PRN nausea and 02/07/25 Rx vomiting #30 tabs Allergies Allergy/AdvReac Type Severity Reaction Status Date / Time coconut Allergy Mild Hives Verified 02/03/25 01:05 Vital Signs Vital Signs - 24 hr 02/08/25 18:15 02/08/25 18:30 02/08/25 18:46 Pulse Rate 73 78 79 Blood Pressure 161/98 H 150/101 H 153/101 H Pulse Oximetry 02/08/25 19:01 02/08/25 19:16 02/08/25 19:31 Pulse Rate 74 70 74 Blood Pressure 149/88 H 161/94 H 159/92 H Pulse Oximetry 02/08/25 19:46 02/08/25 20:03 02/08/25 20:06 Pulse Rate 82 87 Blood Pressure 166/96 H Pulse Oximetry 83 L 02/08/25 20:07 02/08/25 20:10 02/08/25 20:12 Pulse Rate 94 89 Blood Pressure 170/91 H 156/99 H Pulse Oximetry 99 100 02/08/25 20:17 Pulse Rate Blood Pressure Pulse Oximetry 100 Exam Const: General: no acute distress Eyes: General: appearance normal, both eyes and all related structures Resp: Effort & Inspection: normal respiratory effort Auscultation: clear to auscultation bilaterally Cardio: Rate: regular rate GI: Other: Gravid no fundal tenderness, mid epigastric tenderness, no guarding, no ruq pain Skin: General skin exam: no rashes or lesions noted Neuro: Cognition (Neuro): normal cognition Extrem: General: normal to inspection, no calf tenderness and edema (1+ bilat) Other: DTR 3+ Psych: Mental Status: mental status grossly normal H&P: Results Labs Labs: Short CBC 02/08/25 Range/Units 18:16 WBC 12.8 H (4.5-10.0) K/mm3 Hgb 12.7 (12.0-15.0) g/dL Hct 37.8 (37.0-47.0) % Plt Count 105 L (150-375) k/mm3 Urine 02/08/25 Range/Units 19:43 Urine Color Yellow (Yellow) Urine Appearance Clear (Clear) Urine pH 6.5 (5.0-9.0) Ur Specific Lacey 1.015 (1.001-1.035) Urine Protein 4+ H (Negative) mg/dL Urine Glucose (UA) Negative (Negative) mg/dL Assessment and Plan Assessment and plan (1) Severe pre-eclampsia: Code(s): O14.10 - Severe pre-eclampsia, unspecified trimester Status: Acute Assessment and Plan: 1. She was informed of the diagnosis and risk to include abruption, seizures, and need for premature delivery. Discussed need to transfer to [facility] due to high risk of needing premature delivery. 2. Reassuring tracing. 3. I spoke to Dr. Schwartz at [facility], she agreed with transfer. 4. Mgso4 6gm/2gm. 5. PIH labs. 6. Betamethasone. 7. Antihypertensive treatment as needed.
[2025-02-08 20:22] LABS: Hematocrit 39.1 % (37.0-47.0); Hemoglobin 12.9 g/dL (12.0-15.0); Immature Granulocyte Percent A 1.0 % (0-0.5); Immature Platelet Fraction Pct 5.7 % (0.9-11.2); Lymphocytes Absolute Auto 1.10 K/mm3 (0.9-3.2); Mean Corpuscular HGB Conc 33.0 g/dl (32-36); Mean Corpuscular Hemoglobin 31.2 pg (26-34); Mean Corpuscular Volume 94.7 fl (80-100); Nucleated Red Blood Cells Absolute Auto 0.000 K/mm3 (0.0-0.012); Nucleated Red Blood Cells Perc 0.0 % (0.0-0.2); Platelet Count Result 105 k/mm3 (150-375); Red Blood Count 4.13 M/mm3 (4.2-5.4); White Blood Count 15.4 K/mm3 (4.5-10.0)
[2025-02-08] MEDS: MAGNESIUM SULF 20GM/WATER500ML 500 ML 50 MG IV CONT (20:25)
[2025-02-08] MEDS: BETAMETHASONE SOD PHOS/ACETATE 30 MG/5 ML VIAL (20:54)
--- NOTE | 2025-02-08 21:15 | LDADM ---
This patient, Katelyn Loaiza, was admitted to Labor/Delivery/Recovery 103 on 02/08/25 at 16:40. Plans for labor, pain management and were discussed with patient. Patient/family oriented to hospital policies and general routines including ID bracelet, bed and alarms, visiting hours, pain management, procedures, bathroom and other care routines, personal items, smoking policy, room service/diet and guest tray routines, security routines, and visiting hours. Patient/Family are encouraged to report perceived risks to care and to ask questions if they do not understand what they are told or what they should do. See OBIX for further documentation.
[2025-02-08 22:37] LABS: OBXCEM ROM Plus Negative (Negative)
--- NOTE | 2025-02-27 07:48 | PM.TDS ---
Transfer Discharge Sum: Prov Provider Date of admission: 02/08/25 16:40 Primary care physician: UNKNOWN,DOCTOR Admitting clinician: Víctor Carcamo MD Attending physician on admission: Colin Morejon Anticipated date of transfer: 02/08/25 Receiving physician/facility: [facility] DS: Admitting Diagnosis Discharge Date 02/08/25 Admitting Diagnosis 1. Severe pre-eclampsia 2. Abdominal pain DS: Discharge Diagnosis Discharge Diagnosis (1) Severe pre-eclampsia: Code(s): O14.10 - Severe pre-eclampsia, unspecified trimester Status: Acute Transfer Discharge Sum: Med Medications Active and Home Medications: Home Medications vits no.126-ferrous fum 28 mg iron-folic acid 800 mcg tablet (Classic ) tablet PO DAILY 09/15/24 [History Confirmed 01/26/25] ferrous sulfate 325 mg (65 mg iron) tablet,delayed release 325 mg PO DAILY 09/16/24 [History Confirmed 02/03/25] metoclopramide HCl 5 mg tablet (Reglan) 5 mg PO DAILY #30 tabs 10/10/24 [Rx Confirmed 02/03/25] triamcinolone acetonide 0.025 % lotion 1 applic topical BID #60 mL 01/26/25 [Rx Confirmed 02/03/25] lidocaine 1.8 % topical patch 1 patch topical DAILY #30 ea 02/07/25 [Rx] ondansetron HCl 4 mg tablet 4 mg PO Q6H PRN nausea and vomiting #30 tabs 02/07/25 [Rx] Transfer Discharge Sum: Hosp Hospital Course Hospital course: Katelyn Loaiza is a 29 year old female admitted to and D for evaluation of headache and abdominal pain. She had increasing headache, severe range. Her labs and vitals consistent with severe pre-eclampsia, possible HELLP. She had bedside ultrasound and was started on Magnesium and antihypertensives. She was recommended for possible need for immediate severe delivery and need to be transferred to tertiary facility or NICU support. She agreed. [facility] accepted her as a patient and she was transferred via flight to [facility]. tracing reassuring, blood pressures stable, and minimal contractions prior to transfer. Patient Condition: Stable Time Spent with Patient Time attestation: Total time spent providing and/or coordinating transfer services: Exam Const: General: no acute distress Eyes: General: appearance normal, both eyes and all related structures Resp: Effort & Inspection: normal respiratory effort Auscultation: clear to auscultation bilaterally Cardio: Rate: regular rate GI: Other: Gravid no fundal tenderness, mid epigastric tenderness, no guarding, no ruq pain Skin: General skin exam: no rashes or lesions noted Neuro: Cognition (Neuro): normal cognition Extrem: General: normal to inspection, no calf tenderness and edema (1+ bilat) Other: DTR 3+ DS: Data Data Completed and Pending Completed studies during hospitalization: Third trimester ultrasound, labs
== END 2025-02-08 21:50 | disposition short-term general hospital (02) ==
PROVIDERS: Admitting Provider Obstetrics & Gynecology; Visit Provider Obstetrics & Gynecology
DX: O14.13 Severe pre-eclampsia, third trimester (principal); Z3A.30 30 weeks gestation of pregnancy; Z87.891 Personal history of nicotine dependence; Z82.3 Family history of stroke; Z82.49 Family history of ischemic heart disease and other diseases of the circulatory system
CPT/HCPCS: 36415; 76705; 76815; 81001; 82570; 84112; 84156; 85025; 85055; 93005; 96361; 96365; 96375; 96376; A9270; G0378; G0379; J0702; J2550; J3475; J7120